=== PATIENT | male | born 1995 | race Caucasian/White ===

== ENCOUNTER 2017-03-27 08:22 | Emergency (ER) | END 2017-03-27 09:37 | disposition home or self-care (01) | DX: R22.0 Localized swelling, mass and lump, head (principal); T78.1XXA Other adverse food reactions, not elsewhere classified, initial encounter | CPT/HCPCS: J7512; Z7502 ==

== ENCOUNTER 2017-11-29 08:59 | Emergency (ER) | END 2017-11-29 11:03 | disposition home or self-care (01) ==